=== PATIENT | female | born 1965 | race American Indian/Alaskan Native ===

== ENCOUNTER 2020-10-13 07:29 | Emergency (ER) | payer BC ==
[2020-10-13] MEDS ORDERED: ACETAMINOPHEN 325 MG TAB PO ONE (07:38)
[2020-10-13] MEDS ORDERED: IBUPROFEN 600 MG TAB PO ONE (07:39)
[2020-10-13] MEDS ORDERED: IBUPROFEN 800 MG TAB PO ONE (07:39)
--- NOTE | 2020-10-13 07:39 | Event Note ---
ED Screening Note ED Screening Note: fever and chills cough sat ok; febrile hx breast ca exposed to covid This initial assessment/diagnostic orders/clinical plan/treatment(s) is/are subject to change based on patients health status, clinical progression and re- assessment by fellow clinical providers in the ED. Further treatment and workup at subsequent clinical providers discretion. Patient/guardian urged not to elope from the ED as their condition may be serious if not clinically assessed and managed. Initial orders include: PUI
--- NOTE | 2020-10-13 08:18 | XRay Report ---
CHEST 2 VIEWS INDICATION: sob. COMPARISON: None FINDINGS: Support devices: None. Heart: Within normal limits. Lungs/pleura: No acute air space or interstitial disease. No pneumothorax. Additional findings: Surgical clips in the left axillary soft tissues and lateral right breast are no deb. IMPRESSION: No acute findings. Signer Name: Mic Mcfadden Jr, MD Signed: 10/13/2020 8:14 AM Workstation Name: [id number]
[2020-10-13 09:54] LABS: Hematocrit 41.3 % (30.3-42.9); Hemoglobin 13.9 gm/dl (10.1-14.3); Mean Corpuscular HGB Conc 34 % (30-34); Mean Corpuscular Volume 92 fl (79-97); Platelet Count 170 K/mm3 (140-440); Red Blood Count 4.49 M/mm3 (3.65-5.03); Red Cell Distribution Width 14.4 % (13.2-15.2)
--- NOTE | 2020-10-13 10:12 | Emergency Department Report ---
ED Shortness of Breath HPI - General Chief Complaint: Dyspnea/Respdistress Stated Complaint: SOB/FEVER Time Seen by Provider: 10/13/20 07:35 Source: patient Mode of arrival: Ambulatory Limitations: No Limitations - History of Present Illness Initial Comments: Ms. Grover is a 55 years old female with history of hypertension. Patient presented to the ER complaining of fever chills, shortness of breath and cough since yesterday. Patient stated that 9 of her coworker tested positive for COVID-19. Patient stated that she had a negative test 1 week ago. Patient stated that she did not take her blood pressure this morning. Patient denied any chest pain, weakness numbness or tingling sensation. MD Complaint: shortness of breath, cough -: days(s) (2) Context: recent URI - Related Data Home Medications Medication Instructions Recorded Confirmed Last Taken Levothyroxine [Synthroid] 100 mcg PO QAM 06/04/14 05/28/16 06/03/14 09:00 Potassium Chloride [Klor-Con 10] 10 meq PO TID 06/04/14 05/28/16 06/03/14 09:00 Tamoxifen Citrate 10 mg PO QDAY 06/04/14 05/28/16 06/03/14 09:00 amLODIPine [Norvasc] 10 mg PO DAILY 06/04/14 05/28/16 06/03/14 09:00 Previous Rx's Medication Instructions Recorded Last Taken Type Acyclovir [Zovirax Tab] 800 mg PO Q12H #50 tab 05/28/16 Unknown Rx Cetirizine HCl [ZyrTEC] 10 mg PO DAILY #30 capsule 09/17/16 Unknown Rx Allergies Allergy/AdvReac Type Severity Reaction Status Date / Time amoxicillin [Amoxicillin] Allergy Rash Verified 06/04/14 05:20 oxycodone HCl [From Percocet] Allergy Rash Verified 06/04/14 05:20 bandaide Allergy Unknown Uncoded 06/04/14 05:20 ED Review of Systems ROS: Stated complaint: SOB/FEVER Other details as noted in HPI Comment: All other systems reviewed and negative Constitutional: chills, fever Respiratory: cough, shortness of breath. denies: orthopnea, SOB with exertion, wheezing Cardiovascular: denies: chest pain, palpitations Gastrointestinal: denies: abdominal pain, nausea, vomiting Musculoskeletal: denies: back pain Neurological: denies: headache, weakness, numbness, paresthesias, confusion, abnormal gait ED Past Medical Hx - Past Medical History Previous Medical History?: Yes Hx Hypertension: Yes Additional medical history: Hypothroid, chronic back pain, breast CA - Surgical History Past Surgical History?: Yes Hx Breast Surgery: Yes (reconstruction) Additional Surgical History: hysterectomy. Bilat mastetcomy. lymph node removal from left arm. - Social History Smoking Status: Never Smoker Substance Use Type: None - Medications Home Medications: Home Medications Medication Instructions Recorded Confirmed Last Taken Type Levothyroxine [Synthroid] 100 mcg PO QAM 06/04/14 05/28/16 06/03/14 09:00 History Potassium Chloride [Klor-Con 10] 10 meq PO TID 06/04/14 05/28/16 06/03/14 09:00 History Tamoxifen Citrate 10 mg PO QDAY 06/04/14 05/28/16 06/03/14 09:00 History amLODIPine [Norvasc] 10 mg PO DAILY 06/04/14 05/28/16 06/03/14 09:00 History Acyclovir [Zovirax Tab] 800 mg PO Q12H #50 tab 05/28/16 Unknown Rx Cetirizine HCl [ZyrTEC] 10 mg PO DAILY #30 capsule 09/17/16 Unknown Rx ED Physical Exam - General Limitations: No Limitations General appearance: alert, in no apparent distress - Head Head exam: Present: atraumatic, normocephalic, normal inspection - Eye Eye exam: Present: normal appearance, PERRL - ENT ENT exam: Present: normal exam, normal orophraynx, mucous membranes moist - Neck Neck exam: Present: normal inspection, full ROM. Absent: tenderness, me ningismus - Respiratory Respiratory exam: Present: normal lung sounds bilaterally - Cardiovascular Cardiovascular Exam: Present: regular rate, normal rhythm, normal heart sounds - GI/Abdominal GI/Abdominal exam: Present: soft, normal bowel sounds. Absent: distended, tenderness, guarding, rebound, rigid, organomegaly, mass, bruit, pulsatile mass, hernia - Extremities Exam Extremities exam: Present: normal inspection, full ROM, normal capillary refill. Absent: tenderness, pedal edema, calf tenderness - Back Exam Back exam: Present: normal inspection, full ROM. Absent: CVA tenderness (R), CVA tenderness (L) - Neurological Exam Neurological exam: Present: alert, oriented X3, CN II-XII intact, normal gait, reflexes normal - Psychiatric Psychiatric exam: Present: normal mood - Skin Skin exam: Present: warm, intact, normal color ED Course Vital Signs 10/13/20 10/13/20 10/13/20 07:54 09:40 09:45 Temperature 101.2 F H Pulse Rate 90 79 Respiratory 18 14 21 Rate Blood Pressure 147/77 Blood Pressure 178/102 [Right] O2 Sat by Pulse 98 99 97 Oximetry 10/13/20 10/13/20 09:50 09:57 Temperature 99.4 F Pulse Rate Respiratory Rate Blood Pressure Blood Pressure [Right] O2 Sat by Pulse 99 Oximetry ED Medical Decision Making - Lab Data Result diagrams: 10/13/20 08:45 10/13/20 08:45 - Radiology Data Radiology results: report reviewed - Medical Decision Making Ms. Grover is a 55 years old female with history of hypertension. Patient presented to the ER complaining of fever chills, shortness of breath and cough since yesterday. Patient stated that 9 of her coworker tested positive for COVID-19. Patient stated that she had a negative test 1 week ago. Patient stated that she did not take her blood pressure this morning. Patient denied any chest pain, weakness numbness or tingling sensation. Labs reviewed and is unremarkable. Chest x-ray showed no evidence of pneumonia. Patient received ibuprofen in triage and her temperature is now 99. Patient stated that she is feeling better. Patient oxygen saturation remained above 90 even after walking. Patient advised to self quarantine and to follow-up with her primary care physician in the next 2 to 3 days and to return to the ER if she develop any new symptoms. Critical care attestation.: If time is entered above; I have spent that time in minutes in the direct care of this critically ill patient, excluding procedure time. ED Disposition Clinical Impression: Shortness of breath, Fever, Suspected COVID-19 virus infection Disposition: - TO HOME OR SELFCARE Is pt being admited?: No Condition: Stable Instructions: Shortness of Breath, Adult, [id number], COVID-19 Frequently Asked Questions, Prevent the Spread of COVID-19 if You Are Sick - [facility] Referrals: PRIMARY CARE, [Primary Care Provider] - 3-5 Days
[2020-10-13 10:22] LABS: BUN/Creatinine Ratio 10; Blood Urea Nitrogen 9 mg/dL (7-17); Calcium 8.6 mg/dL (8.4-10.2); Hemolysis Index 40
[2020-10-13 12:38] VITALS: BP 150/97
[2020-10-13 13:23] LABS: Bacteria,Urine 3+ /HPF (Negative); Bilirubin,Urine NEG (Negative); Blood,Urine MOD (Negative); Color,Urine Straw (Yellow); Mucus,Urine FEW /HPF; Protein,Urine <15 mg/dL mg/dL (Negative); Urobilinogen,Urine < 2.0 mg/dL (<2.0)
== END 2020-10-13 12:50 | disposition home or self-care (01) ==
LOC: ED 07:29
DX: R50.9 Fever, unspecified (principal); R06.02 Shortness of breath; R05 Cough; I10 Essential (primary) hypertension; Z98.890 Other specified postprocedural states; Z20.828 Contact with and (suspected) exposure to other viral communicable diseases; Z90.710 Acquired absence of both cervix and uterus; Z79.899 Other long term (current) drug therapy; Z88.2 Allergy status to sulfonamides; Z88.8 Allergy status to other drugs, medicaments and biological substances
CPT/HCPCS: 36415; 71046; 80048; 81001; 84484; 85027; 86140; 93005